=== PATIENT | female | born 1940 | race African-American/Black ===

== ENCOUNTER 2016-04-24 21:10 | Emergency (ER) | payer OTHER, MEDICARE ==
[2016-04-24 21:22] VITALS: TEMP 98.6; BMI 28.3
[2016-04-24] MEDS ORDERED: SODIUM CHLORIDE 0.9% 3 ML FLUSH FLUSH PRN (21:55)
--- NOTE | 2016-04-24 22:12 | DIRPT ---
CLINICAL DATA: Acute onset of high blood pressure. Headache. Initial encounter. EXAM: PORTABLE CHEST 1 VIEW COMPARISON: Chest radiograph from 05/01/2015 FINDINGS: The lungs are well-aerated and clear. There is no evidence of focal opacification, pleural effusion or pneumothorax. The cardiomediastinal silhouette is borderline normal in size. No acute osseous abnormalities are seen. The patient is status post bilateral rotator cuff repair. IMPRESSION: No acute cardiopulmonary process seen. Electronically Signed By: Eros Olson M.D. On: 04/24/2016 22:09
--- NOTE | 2016-04-24 22:32 | EDPRACDOC ---
- General Information Chief Complaint: Blood Pressure (Problems) Stated Complaint: HIGH BLOOD PRESSURE Time Seen by Provider: 04/24/16 21:55 Information Source: Patient Mode Of Arrival: Car Home Medications: Home Medications Aspirin [Aspirin, Chewable] 81 mg PO DAILY 08/28/12 Brimonidine Tartrate [Alphagan-P 0.15%] 1 drop OU BID 08/28/12 Multivitamin [One-A-Day Essential] 1 tab PO DAILY 08/28/12 Latanoprost 1 drop OU HS 08/31/13 Amlodipine [Norvasc] 2.5 mg PO DAILY #30 tab 10/14/14 Ranolazine [Ranexa] 500 mg PO BID #60 tablet.er 10/15/14 Propranolol HCl 20 mg PO TID 05/01/15 Lisinopril [Prinivil] 10 mg PO DAILY 06/01/15 Omeprazole [Prilosec] 20 mg PO DAILY 06/01/15 Atorvastatin Calcium [Lipitor] 20 mg PO QHS 10/11/15 Atropine Sulfate in 0.9% NaCl [Atropine 0.01%-Ns Eye Drops] 1 drop OD BID CloNIDine (Antihypertensive) [Catapres] 0.1 mg PO BID #30 tab 04/24/16 Difluprednate [Durezol] 1 drop OD BID 04/24/16 Allergies/Adverse Reactions: Allergies Allergy/AdvReac Type Severity Reaction Status Date / Time promethazine HCl Allergy Severe Anaphylaxis Verified 12/06/15 10:50 [From Phenergan] * Antihistamines - Alkylamine Allergy Unknown Hypertensio Verified 12/06/15 10:50 n lorazepam [From Ativan] Allergy Rash-Genera Verified 12/06/15 10:50 lized - History of Present 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 SHE STAETS SHE IS CURRENTLY BEING TREATED FOR UTI WITH MACROBID. PT STATES SHE FEELS FINE AT THIS TIME, NO CP SOB HEADACHE OR DIAPHORESIS AT THIS TIME. Highest Known BP [employer]ARNESS [employer]: Unknown Symptoms: Reports: Mild Circumstances: Reports: Ran Out of Medication Relevent History of: Reports: Hypertension Hypertension Treatment: Reports: Taking Medication Recent Use of: Reports: None Associated Signs and Symptoms: Reports: Headache ED Past Medical History - History Reviewed Yes Nurses notes reviewed and agree except as marked Travel Outside of [place] in the Last 3 Months?: No - Patient Medical History Cardiac History: Reports: Hypertension, Cardiac Catheterization ( Catheterization December 2013 showed no occlusive disease.), Stress Test ( Negative stress test 2012.), Hypercholesterolemia. Denies: Congestive Heart Failure, Heart Attack Respiratory History: Reports: COPD, Chronic Bronchitis. Denies: Pneumonia GI/ History: Reports: Diverticulosis Musculoskeletal History: Reports: Arthritis (Both shoulders.) Psychological History: Reports: Depression, Anxiety. Denies: Substance Use Disorder Systemic History: Denies: Cancer Surgical History: Reports: Cardiac Catheterization (Catheterization December 2013 showed no occlusive disease.), Other (Status post shoulder surgery and C- section x1) - Family Medical History Reports: Hypertension (Brother), Diabetes (Brother), Cancer (brother-colon cancer), Stroke (Brother), Cardiac Disorders (Father, Mother and sister with coronary artery disease.) - Social Medical History Smoking Status: Never smoker Social History: Denies: Substance Use Disorder ETOH: None Substance Abuse: None Lives With: Other Lives In: Home EDM Review of Systems - Review of Systems ROS Negative Except as Marked: Yes All systems reviewed and were negative except as marked Constitutional: No Symptoms Reported. negative: Fever, Chills, Weakness, Fatigue, Loss of Appetite Eyes: No Symptoms Reported. negative: Redness, Blurred Vision, Double Vision, Discharge, Pain, Light Sensitive, Photophobia Ears: No Symptoms Reported. negative: Pain, Hearing Loss, Drainage, Ear Pulling Throat: No Symptoms Reported. negative: Pain, Swelling Nose: No Symptoms Reported. negative: Congestion, Bleeding, Discharge, Injection, Swelling, Deformity, Ecchymosis, Tender, Abrasion, Laceration Mouth: No Symptoms Reported. negative: Pain, Drooling Respiratory: No Symptoms Reported. negative: Cough, Brassy Cough, Barky Cough, Shortness of Breath, Wheezing, Hemoptysis Cardiovascular: No Symptoms Reported. negative: Chest Pain, Palpitations, Syncope, Edema, Orthopnea, PND, Skin Mottling, Cyanosis Gastrointestinal: No Symptoms Reported. negative: Pain, Constipation, Nausea, Vomiting, Diarrhea, Melena, Formula Intolerance Genitourinary: No Symptoms Reported. negative: Dysuria, Hematuria, Frequency, Discharge, Bleeding, Testicular Pain, Neurological: Headache. negative: Dizziness, Gait Difficulty, Numbness, Seizure , Speech Difficulty, Weakness Musculoskeletal: No Symptoms Reported. negative: Neck, Chestwall, Ribs, Back, Shoulder, Arm, Elbow, Forearm, Wrist, Hand, Pelvis, Hip, Femur, Knee, Leg, Ankle , Foot Integumentary: No Symptoms Reported. negative: Itching, Rash, Bruising, Wound Allergic/Immunologic: No Symptoms Reported. negative: Hives, Itching Hematologic: No Symptoms Reported. negative: Lymphadenopathy, Easy Bruising, Easy Bleeding Endocrine: No Symptoms Reported. negative: Weight Gain, Weight Loss Psychiatric: No Symptoms Reported. negative: Anxiety, Depression, Hallucinations, Insomnia, Suicidal - Physical Exam Constitutional: Alert (Awake), No apparent distress Oriented to: Time, Person, Place Last recorded Vital Signs: Last Vital Signs Temp 98.6 F 04/24/16 21:20 Pulse 69 04/24/16 21:20 Resp 20 04/24/16 21:20 BP 188/80 H 04/24/16 21:20 Pulse Ox 98 04/24/16 21:20 Oxygen Pulse Oxygen Saturation 98 O2 Device Room Air Oxygen Flow Rate Fraction of Inspired Oxygen ( FIO2) - HEENT Head: Normal ( normocephalic) Eye Exam: Normal (PERRL, EOMI, Sclera white) Oropharynx: Normal (Pharynx:Moist without exudate,Gums-no swelling) Tympanic Membrane: Normal ENT EAC: Normal TMJ: Normal Nose: No Symptoms Reported (septum midline) Neck: Normal (FROM, trachea at midline) - Respiratory/Cardiovascular Respiratory: Normal - CTA (BBS clear to auscultation without adventitious sounds ) Cardiovascular: Normal (RRR without murmur, gallop or rub) - GI Auscultation: Normal (NABS) Palpation: Normal (Soft,No rebound or guarding, non distended) Tenderness: Non tender Cabello's Sign: Negative - Musculoskeletal Back: Normal (Non-Tender) Extremities: Normal (Normal tone, Pulses 2+ No cyanosis or edema, FROM) - Integumentary Skin: Normal, Warm, Dry Lymphatics: Normal (no adenopathy) - Neurologic Memory Impaired: Normal Motor Function: Normal (Normal tone, Pulses 2+ No cyanosis or edema, FROM) Cranial Nerve: Normal (CN II-X11 intact sensation, strength 5/5) Cerebellar: Normal Mood Description: Normal Perception: Normal - Differential Diagnosis Hypertension, Essential, Hypertensive Emergency, Hypertensive Urgency - Results 04/24/16 21:49 04/24/16 21:49 - EKG EKG #1 EKG Time: 22:14 -: Yes EKG interpreted by me Rate: bpm: 58 [place]: Normal Rhythm: SB Block: None Hypertrophy: ANUPAMA, LVH ST: Normal - Diagnostic Imaging CXR Image interpreted by: Radiologist IMPRESSION: No acute cardiopulmonary process seen. Decision Time to Discharge: 23:08 - Departure Disposition: Home Condition: Stable Final Diagnosis: Hypertension Qualifiers: Hypertension type: essential hypertension Qualified Code(s): I10 - Essential ( primary) hypertension Instructions: Chronic Hypertension (ED), Hypertension (ED) Education/Counseling Given To: Patient Education/Counseling Given Regarding: Diagnosis, Treatment, Prognosis, Follow Up Referrals: None,No Provider [Family Provider] - One Week Prescriptions: CloNIDine (Antihypertensive) [Catapres] 0.1 mg PO BID #30 tab
[2016-04-24 22:36] LABS: MPV 9.9 fL (7.4-10.4)
[2016-04-24 22:37] LABS: AUTOMATED BASOPHIL 2.7 % (0-2); AUTOMATED EOSINOPHIL 1.2 % (0-5); AUTOMATED LYMPH 34.1 % (17-44); AUTOMATED MONOCYTE 17.5 % (3-10); AUTOMATED NEUTROPHIL 44.5 % (45-76)
[2016-04-24 22:53] LABS: BLOOD UREA NITROGEN 15 MG/DL (7-17); CALCIUM 9.1 MG/DL (8.4-10.2); CALCULATED OSMOLALITY 270 MOs/Kg (270-290); CHLORIDE 104 mEq/L (98-107); GLUCOSE 125 MG/DL (70-99); SODIUM LEVEL 139 mEq/L (137-146)
[2016-04-24 22:54] LABS: PT-INR 1.1
[2016-04-24 23:33] VITALS: BP 181/80; PULSE 58
[2016-04-25] MEDS ORDERED: SODIUM CHLORIDE 0.9% 3 ML FLUSH FLUSH SCH (06:00)
== END 2016-04-24 23:35 | disposition home or self-care (01) ==
LOC: ED 21:10
DX: I10 Essential (primary) hypertension (principal)
CPT/HCPCS: 36415; 71010; 80053; 84484; 85025; 85610; 85730; 93005; 99283; J3490